=== PATIENT | male | born 1995 | race African-American/Black ===

== ENCOUNTER 2016-12-31 12:14 | Emergency (ER) ==
[2016-12-31 12:18] VITALS: BP 146/82; TEMP 98.1; BMI 27.2
[2016-12-31] MEDS ORDERED: SODIUM CHLORIDE 1,000 ML IV STA (12:30)
[2016-12-31 13:03] LABS: BASOPHILS % (AUTO) 0.5 % (0.0-3.0); EOSINOPHILS # (AUTO) 0.1 K/ul (0.0-0.7); EOSINOPHILS % (AUTO) 0.9 % (0.0-7.0); HEMATOCRIT 43.3 % (42.0-52.0); IMMATURE GRANULOCYTE % (AUTO) 0.3 % (0.0-5.0); LYMPHOCYTES # (AUTO) 1.4 K/uL (0.60-3.4); LYMPHOCYTES % (AUTO) 22.5 (10.0-50.0); MEAN CORPUSCULAR HEMOGLOBIN 29.9 pg (27.0-31.0); MEAN CORPUSCULAR HGB CONC 34.6 (31.8-35.4); MEAN CORPUSCULAR VOLUME 86.3 fl (80.0-94.0); MONOCYTES # (AUTO) 0.6 K/uL (0.4-2.0); MONOCYTES % (AUTO) 9.5 (0-10); NEUTROPHILS # (AUTO) 4.2 K/ul (2.0-6.9); NEUTROPHILS % (AUTO) 66.3; PLATELET COUNT 233 10^3/uL (140-440); RED BLOOD COUNT 5.02 10^6/ul (4.70-6.10); WHITE BLOOD COUNT 6.39 K/ul (4.2-10.2)
[2016-12-31 13:25] LABS: BILIRUBIN,URINE 1+ (NEGATIVE); KETONES,URINE Negative (NEGATIVE); LEUKOCYTE ESTERASE ,URINE Negative (NEGATIVE); NITRITE,URINE Negative (NEGATIVE); PROTEIN,URINE Trace (NEGATIVE); URINE, BLOOD Negative (NEGATIVE)
[2016-12-31 13:28] LABS: ALBUMIN 4.3 g/dL (3.4-5.0); ALBUMIN/GLOBULIN RATIO 1.1; BILIRUBIN,TOTAL 0.64 mg/dL (0.00-1.20); BUN/CREATININE RATIO 8.16; CALCIUM 9.3 mg/dL (8.2-10.2); CREATININE 0.98 mg/dL (0.60-1.10); TOTAL PROTEIN 8.2 g/dL (6.4-8.2)
[2016-12-31 13:29] LABS: ADD URINE MICROSCOPIC YES; BACTERIA,URINE TRACE (NOT PRESENT)
[2016-12-31 13:40] LABS: ERYTHROCYTE SEDIMENTATION RATE 14 mm/hr (0-15); ESR INTERNAL QC INTERNAL QC VALID
--- NOTE | 2016-12-31 14:23 | CT ---
Exam: CT of the abdomen pelvis without intravenous contrast followed by CT of the abdomen pelvis wi th intravenous contrast. Comparison: None available. Reason for exam: Lower abdominal pain. FINDINGS: No pleural effusion, or focal consolidation is seen in the partially imaged lung bases. The liver, spleen, gallbladder, pancreas, and adrenal glands are grossly unremarkable. No focal small bowel dilatation or transition point. Prominent appearing lymph nodes are seen throu ghout the abdominal mesentery. There is wall thickening and inflammatory changes in the transverse and descending colon. The rectosigmoid is unremarkable. No suspicious appearing osteoblastic or osteolytic lesions. No intra-abdominal free air or pelvic free fluid. Impression: 1. Wall thickening with mild inflammatory changes in the transverse and descending colon with promin ent mesenteric lymph nodes. Imaging findings are consistent with colitis. 2. No other acute inflammatory findings are seen. The appendix is unremarkable. Report faxed at [phone] hours on 12/31/2016.
--- NOTE | 2016-12-31 14:33 | ED.PDOC ---
General ED Provider: Dr. RIYA NEWELL-ER Chief Complaint: Abdominal Pain Stated Complaint: camille been crmping for 2 days Time Seen by Physician: 12:15 Mode of Arrival: Walk-In Information Source: Patient Exam Limitations: No limitations Nursing and Triage Documentation Reviewed and Agree: Yes GI Complaint Exam - Abdominal Pain Complaint/Exam Onset: Gradual Duration: 2 days Symptoms Are: Still present Timing: Intermittent Initial Severity: Mild Current Severity: Mild Location of Pain: Diffuse Character: Reports: Dull, Aching, Throbbing, Cramping Aggravating: Reports: None Alleviating: Reports: Spontaneous resolution Associated Signs and Symptoms: Denies: Diaphoresis, Fever, Cough, Chest pain, Dizziness, Back pain, Constipation, Blood in stool, Dysuria, Urinary frequency, Decreased urine output, Decreased appetite, Discharge, Nausea, Vomiting, Diarrhea, Decreased activity AAA Risk Factors: Reports: None Cardiac Risk Factors: Reports: None Testicular Torsion Risk Factors: Reports: None Related Surgical History: Reports: None Differential Diagnoses: Constipation, Pancreatitis, Irritable Bowel Syndrome Review of Systems - Review Of Systems Constitutional: Reports: No symptoms Eyes: Reports: No symptoms Ears, Nose, Mouth, Throat: Reports: No symptoms Respiratory: Reports: No symptoms Cardiac: Reports: No symptoms GI: Reports: Abdominal pain. Denies: Nausea, Poor appetite, Poor fluid intake, Rectal bleeding, Vomiting, Other : Reports: No symptoms Musculoskeletal: Reports: No symptoms Skin: Reports: No symptoms Neurological: Reports: No symptoms Endocrine: Reports: No symptoms Hematologic/Lymphatic: Reports: No symptoms All Other Systems: Reviewed and Negative Past Medical History - Past Medical History Previously Healthy: Yes Endocrine: Reports: Unknown Cardiovascular: Reports: Unknown Respiratory: Reports: Unknown Hematological: Reports: Unknown Gastrointestinal: Reports: Unknown Genitourinary: Reports: Unknown Neuro/Psych: Reports: Unknown Musculoskeletal: Reports: Unknown Cancer: Reports: Unknown - Surgical History General Surgical History: Reports: Unknown - Family History Family History: Reports: Unknown - Social History Smoking Status: Current every day smoker, Light tobacco smoker Hx Substance Use: No Alcohol Screening: Occasionally Lives: With family Physical Exam - Physical Exam Appearance: Well-appearing Pain Distress: Mild Eyes: CINDY, EOMI, Conjunctiva clear ENT: Ears normal, Nose normal, Oropharynx normal Neck: Supple Respiratory: Airway patent, Breath sounds clear, Breath sounds equal, Respirations nonlabored Cardiovascular: RRR GI/: Soft, Nontender, No masses, Bowel sounds normal, No Organomegaly Musculoskeletal: Normal strength, ROM intact, No edema, No calf tenderness Skin: Warm Neurological: Sensation intact, Motor intact, Reflexes intact, Cranial nerves intact, Alert, Oriented Psychiatric: Affect appropriate, Mood appropriate Interpretation - Radiology Interpretation Radiology Interpretation By: Radiologist Radiology Results: Negative Exam Interpreted: CT Scan ("colitis") Critical Care Note - Critical Care Note Total Time (mins): 0 Course - Course Hematology/Chemistry: 12/31/16 12:35 12/31/16 12:35 Orders, Labs, Meds: Lab Review 12/31/16 12:35 WBC 6.39 RBC 5.02 Hgb 15.0 Hct 43.3 MCV 86.3 MCH 29.9 MCHC 34.6 RDW Coeff of Paul 12.5 Plt Count 233 Immature Gran % (Auto) 0.3 Neut % (Auto) 66.3 Lymph % (Auto) 22.5 [place] % (Auto) 9.5 Eos % (Auto) 0.9 Baso % (Auto) 0.5 Immature Gran # (Auto) 0.0 Neut # 4.2 Lymph # 1.4 [place] # 0.6 Eos # 0.1 Baso # 0.0 ESR 14 Sodium 141 Potassium 4.0 Chloride 106 Carbon Dioxide 26 Anion Gap 13.0 BUN 8 Creatinine 0.98 Estimated GFR (MDRD) 118.00 BUN/Creatinine Ratio 8.16 Glucose 87 Calcium 9.3 Total Bilirubin 0.64 AST 30 ALT 21 Alkaline Phosphatase 83 Total Protein 8.2 Albumin 4.3 Globulin 3.9 Albumin/Globulin Ratio 1.10 Amylase 127 H Lipase 10 TSH 0.829 Urine Color Yellow Urine Clarity Clear Urine pH 6.0 Ur Specific [place] 1.025 Urine Protein Trace Urine Glucose (UA) Negative Urine Ketones Negative Urine Blood Negative Urine Nitrite Negative Urine Bilirubin 1+ Urine Urobilinogen 0.2 Ur Leukocyte Esterase Negative Urine Microscopic WBC 2-5 Ur Squamous Epith Cells 2-5 Urine Bacteria Trace Orders Category Date Time Status NPO REMINDER: IMAGING ONCE CARE 12/31/16 12:30 Completed ED IV/MEDIPORT/POWERPORT .ONCE EMERGENCY 12/31/16 12:30 Active AMYLASE Stat LAB 12/31/16 12:35 Completed CBC W/ AUTO DIFF Stat LAB 12/31/16 12:35 Completed COMPREHENSIVE METABOLIC PANEL Stat LAB 12/31/16 12:35 Completed ESR Stat LAB 12/31/16 12:35 Completed LIPASE Stat LAB 12/31/16 12:35 Completed TSH [THYROID STIMULATING HORMONE] Stat LAB 12/31/16 12:35 Completed URINALYSIS C & S IF INDICATED Stat LAB 12/31/16 12:35 Completed 0.9 % Sodium Chloride [Saline Flush] MEDS 12/31/16 12:30 Active 1 syr IVF PRN PRN Sodium Chloride 0.9% [Sodium Chloride] 1,000 ml MEDS 12/31/16 12:30 Active IV 250 mls/hr CT ABDOMEN/PELVIS W/WO CONTRAS Stat RADS 12/31/16 12:30 Completed Medications Generic Name Dose Route Start Last Admin Trade Name Freq PRN Reason Stop Dose Admin Sodium Chloride 1,000 mls @ 250 mls/hr 12/31/16 12:30 12/31/16 13:01 Sodium Chloride IV 12/31/16 16:29 250 mls/hr .Q4H STA Administration Sodium Chloride 1 syr 12/31/16 12:30 12/31/16 13:01 Saline Flush IVF 1 syr PRN PRN Administration To flush IV Vital Signs: Temp Pulse Resp BP Pulse Ox 12/31/16 12:14 98.1 F 86 18 146/82 H 98 Departure - Departure Time of Disposition: 14:33 Disposition: HOME SELF-CARE Discharge Problem: Colitis Instructions: Colitis (ED) Condition: Good Pt referred to PMD for follow-up: Yes Additional Instructions: flagyl 500mg tid x 7days--librax q 8hrs prn cramps#21--avoid dairy products for 3 days--f/u in clinic --consider gi referral for colonoscopy Allergies/Adverse Reactions: Allergies No Known Allergies Allergy (Verified 12/31/16 12:19) Home Medications: Ambulatory Orders 1 [No Reported Medications] 12/31/16 Disposition Discussed With: Patient
== END 2016-12-31 14:47 | disposition home or self-care (01) ==
LOC: ED 12:14
DX: K52.9 Noninfective gastroenteritis and colitis, unspecified (principal); F17.210 Nicotine dependence, cigarettes, uncomplicated
CPT/HCPCS: 36415; 80053; 81001; 82150; 83690; 84443; 85025; 85651; 96360; 99283

== ENCOUNTER 2017-06-18 08:55 | Emergency (ER) ==
[2017-06-18 08:58] VITALS: BP 148/91; TEMP 97.8; BMI 28.0
--- NOTE | 2017-06-18 09:21 | ED.PDOC ---
General ED Provider: Dr. KELLY QUINN JR Chief Complaint: Abdominal Pain Stated Complaint: patient states he has had this off and on for 2-3 weeks. states he has diarrhea and has some blood in it. states he has bright red blood that is in the toilet. patient states he has had this before and dx with colitis.[End]97.8 85 16 98% 148/91 7/10colitis diarrhea melena 06/18/17. : Colitis (ED). Pt referred to PMD for follow-up: Yes. flagyl 500mg tid x 7days--librax q 8hrs prn cramps#21--avoid dairy products for 3 days--f/u in clinic --consider gi referral for colonoscopy (Verified 12/31/16 12:19) Time Seen by Physician: 09:14 Mode of Arrival: Walk-In Information Source: Patient Exam Limitations: No limitations Nursing and Triage Documentation Reviewed and Agree: No Reviewed sepsis parameters & appropriate labs ordered?: No System Inflammatory Response Syndrome: Not Applicable Sepsis Protocol: For patient's 13 years and over: Temp is 96.8 and below OR 101 and greater Pulse >90 BPM Resp >20/minute Acutely Altered Mental Status Are patient's symptoms suggestive of a new infection, such as: -Pneumonia -Skin, Soft Tissue -Endocarditis -UTI -Bone, Joint Infection -Implantable Device -Acute Abdominal Infection -Wound Infection -Meningitis -Blood Stream Catheter Infection -Unknown System Inflammatory Response Syndrome: Not Applicable Review of Systems - Review Of Systems Constitutional: Reports: Weakness Eyes: Reports: No symptoms Ears, Nose, Mouth, Throat: Reports: No symptoms Respiratory: Reports: No symptoms Cardiac: Reports: No symptoms GI: Reports: Abdominal pain (periumbilical, nonfocal tenderness on exam), Diarrhea (cramping), Rectal bleeding : Reports: No symptoms Musculoskeletal: Reports: No symptoms Skin: Reports: No symptoms Neurological: Reports: Weakness Endocrine: Reports: Unexplained weight loss Hematologic/Lymphatic: Reports: No symptoms All Other Systems: Other Past Medical History - Past Medical History Previously Healthy: Yes Endocrine: Reports: Unknown Cardiovascular: Reports: Unknown Respiratory: Reports: Unknown Hematological: Reports: Unknown. Denies: Sickle Cell (trait positive) Gastrointestinal: Reports: Unknown Genitourinary: Reports: Unknown Neuro/Psych: Reports: Unknown Musculoskeletal: Reports: Unknown Cancer: Reports: Unknown - Surgical History General Surgical History: Reports: Unknown - Family History Family History: Reports: Unknown - Social History Smoking Status: Current every day smoker, Light tobacco smoker Hx Substance Use: No Alcohol Screening: Occasionally Physical Exam - Physical Exam Appearance: Well-appearing, Thin Eyes: CINDY ENT: Ears normal, Nose normal, Oropharynx normal Neck: Supple Respiratory: Airway patent, Breath sounds clear, Breath sounds equal, Respirations nonlabored Cardiovascular: RRR, Pulses normal, No rub, No murmur GI/: No masses (increased abdominal tone diffuse tenderness pain is periumbilical), Bowel sounds normal, Tender (nonfocal) Musculoskeletal: Normal strength, ROM intact, No edema, No calf tenderness Skin: Warm, Dry, Normal color Neurological: Sensation intact, Motor intact, Reflexes intact, Cranial nerves intact, Alert, Oriented Psychiatric: Affect appropriate, Mood appropriate Critical Care Note - Critical Care Note Total Time (mins): 0 Course - Course Hematology/Chemistry: 06/18/17 09:42 06/18/17 09:42 Orders, Labs, Meds: Lab Review 06/18/17 06/18/17 06/18/17 09:42 09:42 09:42 WBC 8.48 RBC 4.55 L Hgb 13.7 L Hct 40.1 L MCV 88.1 MCH 30.1 MCHC 34.2 RDW Coeff of Paul 12.8 Plt Count 183 Immature Gran % (Auto) 0.4 Neut % (Auto) 69.6 Lymph % (Auto) 23.0 [place] % (Auto) 6.4 Eos % (Auto) 0.4 Baso % (Auto) 0.2 Immature Gran # (Auto) 0.0 Neut # 5.9 Lymph # 2.0 [place] # 0.5 Eos # 0.0 Baso # 0.0 Sodium 138 Potassium 3.9 Chloride 104 Carbon Dioxide 26 Anion Gap 11.9 BUN 10 Creatinine 0.83 Estimated GFR (MDRD) 142.00 BUN/Creatinine Ratio 12.04 Glucose 89 Calcium 9.2 Total Bilirubin 0.6 AST 39 H ALT 53 Alkaline Phosphatase 76 Total Protein 7.8 Albumin 3.9 Globulin 3.9 Albumin/Globulin Ratio 1.00 Amylase 100 Lipase 8 Stl Occult Blood (IFOB) Stool Occult Blood #2 Stool Occult Blood #3 H. pylori IgG Antibody Positive 06/18/17 10:00 WBC RBC Hgb Hct MCV MCH MCHC RDW Coeff of Paul Plt Count Immature Gran % (Auto) Neut % (Auto) Lymph % (Auto) [place] % (Auto) Eos % (Auto) Baso % (Auto) Immature Gran # (Auto) Neut # Lymph # [place] # Eos # Baso # Sodium Potassium Chloride Carbon Dioxide Anion Gap BUN Creatinine Estimated GFR (MDRD) BUN/Creatinine Ratio Glucose Calcium Total Bilirubin AST ALT Alkaline Phosphatase Total Protein Albumin Globulin Albumin/Globulin Ratio Amylase Lipase Stl Occult Blood (IFOB) Negative Stool Occult Blood #2 No specimen received Stool Occult Blood #3 No specimen received H. pylori IgG Antibody Orders Category Date Time Status AMYLASE Stat LAB 06/18/17 09:42 Completed CBC W/ AUTO DIFF Stat LAB 06/18/17 09:42 Completed COMPREHENSIVE METABOLIC PANEL Stat LAB 06/18/17 09:42 Completed H. PYLORI SCREEN Stat LAB 06/18/17 09:42 Completed LIPASE Stat LAB 06/18/17 09:42 Completed OCCULT BLOOD, STOOL Stat LAB 06/18/17 10:00 Completed STOOL CULTURE Stat LAB 06/18/17 10:00 Received URINALYSIS C & S IF INDICATED Stat LAB 06/18/17 09:34 Uncollected Vital Signs: Temp Pulse Resp BP Pulse Ox 06/18/17 08:56 97.8 F 85 16 148/91 H 98 Departure - Departure Time of Disposition: 10:34 Disposition: HOME SELF-CARE Discharge Problem: Gastrointestinal bleeding, lower Instructions: Gastrointestinal Bleeding (ED) Condition: Good Pt referred to PMD for follow-up: No ([facility]) Additional Instructions: need to follow up with gastroenterology stool culture should be finished in 4 days or less recommend take prevpac for helicobacter(germ can cause ulcers) follow up with PMD for referral may follow with [facility] recommend follow up within a week discuss bleeding and weight loss you have mild anemia this indicates blood loss has been noticable sugar is normal(probably no diabetes) Prescriptions: Lansoprazole/Amoxiciln/Clarith [Prevpac Patient Pack] 1 each PO BID #1 combo..pkg Allergies/Adverse Reactions: Allergies No Known Allergies Allergy (Verified 06/18/17 08:58) Home Medications: Ambulatory Orders Lansoprazole/Amoxiciln/Clarith [Prevpac Patient Pack] 1 each PO BID #1 combo..pkg 06/18/17 Disposition Discussed With: Patient
[2017-06-18 09:44] LABS: BASOPHILS % (AUTO) 0.2 % (0.0-3.0); EOSINOPHILS % (AUTO) 0.4 % (0.0-7.0); HEMATOCRIT 40.1 % (42.0-52.0); HEMOGLOBIN 13.7 g/dl (14.0-18.0); IMMATURE GRANULOCYTE % (AUTO) 0.4 % (0.0-5.0); MEAN CORPUSCULAR HEMOGLOBIN 30.1 pg (27.0-31.0); MEAN CORPUSCULAR HGB CONC 34.2 (31.8-35.4); MEAN CORPUSCULAR VOLUME 88.1 fl (80.0-94.0); MONOCYTES # (AUTO) 0.5 K/uL (0.4-2.0); MONOCYTES % (AUTO) 6.4 (0-10); NEUTROPHILS # (AUTO) 5.9 K/ul (2.0-6.9); NEUTROPHILS % (AUTO) 69.6; PLATELET COUNT 183 10^3/uL (140-440); RED BLOOD COUNT 4.55 10^6/ul (4.70-6.10); WHITE BLOOD COUNT 8.48 K/ul (4.2-10.2)
[2017-06-18 09:57] LABS: H. PYLORI ANTIBODY POSITIVE (NEGATIVE); H.PYLORI INTERNAL QC INTERNAL QC VALID
[2017-06-18 10:08] LABS: ALBUMIN 3.9 g/dL (3.4-5.0); ANION GAP 11.9; BILIRUBIN,TOTAL 0.6 mg/dL (0.00-1.20); BUN/CREATININE RATIO 12.04; CALCIUM 9.2 mg/dL (8.2-10.2); CREATININE 0.83 mg/dL (0.60-1.10); POTASSIUM 3.9 mmol/L (3.5-5.1); TOTAL PROTEIN 7.8 g/dL (6.4-8.2)
[2017-06-18 10:24] LABS: OCCULT BLOOD INTERNAL QC 1 INTERNAL QC VALID; OCCULT BLOOD INTERNAL QC 2 INTERNAL QC VALID; OCCULT BLOOD SAMPLE 1 NEGATIVE (NEGATIVE); OCCULT BLOOD SAMPLE 2 NO SPECIMEN RECEIVED (NEGATIVE)
[2017-06-18 10:25] LABS: OCCULT BLOOD INTERNAL QC 3 INTERNAL QC VALID; OCCULT BLOOD SAMPLE 3 NO SPECIMEN RECEIVED (NEGATIVE)
== END 2017-06-18 10:52 | disposition home or self-care (01) ==
LOC: ED 08:55
DX: K92.1 Melena (principal); R10.9 Unspecified abdominal pain; R63.4 Abnormal weight loss; A04.8 Other specified bacterial intestinal infections; D50.0 Iron deficiency anemia secondary to blood loss (chronic); F17.210 Nicotine dependence, cigarettes, uncomplicated
CPT/HCPCS: 36415; 80053; 82150; 82272; 83690; 85025; 86677; 87015; 87045; 87899; 99283

== ENCOUNTER 2018-02-27 15:17 | Outpatient (CLI) | END 2018-02-27 15:18 | disposition home or self-care (01) | LOC: RHC-LAB 15:17 | PROVIDERS: ATTEND Nurse Practitioner Family | DX: Z00.00 Encounter for general adult medical examination without abnormal findings (principal) | CPT/HCPCS: 36415; 80053; 80061; 84443; 85025 ==

== ENCOUNTER 2018-03-16 20:32 | Emergency (ER) ==
[2018-03-16 20:39] VITALS: BMI 33.3
--- NOTE | 2018-03-16 21:23 | CT ---
EXAM: CT scan brain without contrast HISTORY: Altered mental status COMPARISON: None. FINDINGS: Contiguous axial images obtained from the skull base to the convexities without contrast u tilizing 5-mm collimation. Sagittal and coronal reconstructions were imaged and reviewed.. The vent ricles and CSF spaces are within normal there are no acute intracranial findings. The visualized par anasal sinuses and mastoid air cells are clear. The calvarium is intact. IMPRESSION: No acute intracranial findings
--- NOTE | 2018-03-17 00:46 | ED.PDOC ---
General <DENAE BEE - Last Filed: 03/17/18 23:38> Stated Complaint: sent her--not answering questions--hx of paranoid schiz Time Seen by Physician: 20:40 Mode of Arrival: Walk-In Information Source: Patient Exam Limitations: No limitations Nursing and Triage Documentation Reviewed and Agree: Yes Does patient meet sepsis criteria?: No System Inflammatory Response Syndrome: Not Applicable <RIYA CA - Last Filed: 03/18/18 19:00> ED Provider: Dr. RIYA CA Chief Complaint: Altered Mental Status Sepsis Protocol: For patient's 13 years and over: Temp is 96.8 and below OR 101 and greater Pulse >90 BPM Resp >20/minute Acutely Altered Mental Status Are patient's symptoms suggestive of a new infection, such as: -Pneumonia -Skin, Soft Tissue -Endocarditis -UTI -Bone, Joint Infection -Implantable Device -Acute Abdominal Infection -Wound Infection -Meningitis -Blood Stream Catheter Infection -Unknown Psychological Complaint Exam - Psychiatric Complaint/Exam Patient Complains Of: Present: Other Onset/Duration: today Symptoms Are: Still present Initial Severity: Mild Current Severity: Moderate Character: Present: Depressed, Fearful, Anxious Aggravating: Reports: Recent stress Associated Signs And Symptoms: Denies: Hostile, Confused, Hallucinating, Paranoid behavior, Sleep disturbance, Appetite change Completed Suicide Risk Factors: Male Patient Accompanied By: Family Patient In Custody Of Police: No Social Withdrawal Present: Yes Social Isolation Present: Yes Prior Suicide Attempt: No Related Surgical History: Reports: None Patient Uncooperative For Exam: No Mood: Present: Depressed, Guarded, Paranoid Appearance: Present: Clean Thought Process: Present: Logical Insight: Present: Poor Danger To Others: No Patient Medically Stable For: Psych evaluation, Referral, Transfer Differential Diagnoses: Acute Psychosis, Schizophrenia <RIYA CA - Last Filed: 03/18/18 19:00> Review of Systems - Review Of Systems Constitutional: Reports: No symptoms Eyes: Reports: No symptoms Ears, Nose, Mouth, Throat: Reports: No symptoms Respiratory: Reports: No symptoms Cardiac: Reports: No symptoms GI: Reports: No symptoms : Reports: No symptoms Musculoskeletal: Reports: No symptoms Skin: Reports: No symptoms Neurological: Reports: Emotional problems, Cognitive dysfunction Endocrine: Reports: No symptoms Hematologic/Lymphatic: Reports: No symptoms All Other Systems: Reviewed and Negative <RIYA CA - Last Filed: 03/18/18 19:00> Past Medical History - Past Medical History Previously Healthy: Yes Endocrine: Reports: Unknown Cardiovascular: Reports: Unknown Respiratory: Reports: Unknown Hematological: Reports: Unknown. Denies: Sickle Cell (trait positive) Gastrointestinal: Reports: Unknown Genitourinary: Reports: Unknown Neuro/Psych: Reports: Unknown Musculoskeletal: Reports: Unknown Cancer: Reports: Unknown - Surgical History General Surgical History: Reports: Unknown - Family History Family History: Reports: Unknown - Social History Smoking Status: Current every day smoker, Light tobacco smoker Hx Substance Use: No Alcohol Screening: Occasionally - Immunizations Tetanus Shot up to Date: No <RIYA CA - Last Filed: 03/18/18 19:00> Physical Exam - Physical Exam Appearance: Well-appearing, No pain distress, Well-nourished Eyes: CINDY, EOMI, Conjunctiva clear ENT: Ears normal, Nose normal, Oropharynx normal Neck: Supple Respiratory: Airway patent, Breath sounds clear, Breath sounds equal, Respirations nonlabored Cardiovascular: RRR GI/: Soft, Nontender, No masses, Bowel sounds normal, No Organomegaly Musculoskeletal: Normal strength, ROM intact, No edema, No calf tenderness Skin: Warm, Dry, Normal color Neurological: Sensation intact Psychiatric: Affect appropriate, Mood appropriate <RIYA CA - Last Filed: 03/18/18 19:00> Interpretation - Radiology Interpretation Radiology Interpretation By: Radiologist Radiology Results: Negative Exam Interpreted: CT Scan <RIYA CA - Last Filed: 03/18/18 19:00> Re-Evaluation - Re-Evaluation Time of Re-Evaluation: 23:39 (was given a shower by family and imaging technician) Status: Improved (more cooperative but very paranoid. ) Vital Signs Stable: Yes (152/96) <DENAE BEE - Last Filed: 03/17/18 23:38> Physician Notification - Case Discussed Physician Notified: dr heredia Time of Notification: 06:25 <RIYA CA - Last Filed: 03/18/18 19:00> Critical Care Note - Critical Care Note Total Time (mins): 0 <RIYA CA - Last Filed: 03/18/18 19:00> Course - Course Hematology/Chemistry: 03/17/18 21:59 03/17/18 21:59 <NIKUNJDENAE GILMORE - Last Filed: 03/17/18 23:38> - Course Hematology/Chemistry: 03/17/18 21:59 03/17/18 21:59 <RIYA CA - Last Filed: 03/18/18 19:00> - Course Orders, Labs, Meds: Lab Review 03/16/18 03/16/18 03/16/18 21:12 21:12 21:12 WBC 9.75 RBC 5.26 Hgb 15.9 Hct 45.7 MCV 86.9 MCH 30.2 MCHC 34.8 RDW Coeff of Paul 12.5 Plt Count 233 Immature Gran % (Auto) 0.2 Neut % (Auto) 62.0 Lymph % (Auto) 24.3 [place] % (Auto) 13.0 H Eos % (Auto) 0.2 Baso % (Auto) 0.3 Immature Gran # (Auto) 0.0 Neut # (Auto) 6.0 Lymph # (Auto) 2.4 [place] # (Auto) 1.3 Eos # (Auto) 0.0 Baso # (Auto) 0.0 Sodium 133.9 L Potassium 4.34 Chloride 99.2 Carbon Dioxide 25.1 Anion Gap 13.94 BUN 22.3 H Creatinine 1.00 Estimated GFR (MDRD) 114.00 BUN/Creatinine Ratio 22.30 Glucose 129.5 H Calcium 9.46 Total Bilirubin 1.11 AST 120.9 H ALT 58.1 H Alkaline Phosphatase 75.2 Total Protein 9.66 H Albumin 4.88 Globulin 4.78 Albumin/Globulin Ratio 1.02 TSH 2.250 Urine Color Urine Clarity Urine pH Ur Specific [place]utter Urine Protein Urine Glucose (UA) Urine Ketones Urine Blood Urine Nitrite Urine Bilirubin Urine Urobilinogen Ur Leukocyte Esterase Urine Microscopic WBC Ur Squamous Epith Cells Amorphous Sediment Urine Mucus Salicylate Level mg/dL < 1.00 Urine Opiates Screen Ur Oxycodone Screen Urine Methadone Screen Ur Propoxyphene Screen Acetaminophen < 10.0 L Ur Barbiturates Screen U Tricyclic Antidepress Ur Phencyclidine Scrn Ur Amphetamine Screen U Methamphetamines Scrn U Benzodiazepines Scrn Urine Cocaine Screen U Cannabinoids Screen Plasma/Serum Alcohol < 10.0 HIV 1&2 Ag/Ab, 4th Gen Non reactive 03/17/18 03/17/18 03/17/18 02:10 02:10 21:59 WBC 11.40 H RBC 5.25 Hgb 15.8 Hct 46.2 MCV 88.0 MCH 30.1 MCHC 34.2 RDW Coeff of Paul 12.3 Plt Count 238 Immature Gran % (Auto) 0.4 Neut % (Auto) 63.6 Lymph % (Auto) 21.0 [place] % (Auto) 14.3 H Eos % (Auto) 0.3 Baso % (Auto) 0.4 Immature Gran # (Auto) 0.0 Neut # (Auto) 7.3 H Lymph # (Auto) 2.4 [place] # (Auto) 1.6 Eos # (Auto) 0.0 Baso # (Auto) 0.0 Sodium Potassium Chloride Carbon Dioxide Anion Gap BUN Creatinine Estimated GFR (MDRD) BUN/Creatinine Ratio Glucose Calcium Total Bilirubin AST ALT Alkaline Phosphatase Total Protein Albumin Globulin Albumin/Globulin Ratio TSH Urine Color Yellow Urine Clarity Clear Urine pH 6.0 Ur Specific [place] >=1.030 Urine Protein 2+ Urine Glucose (UA) Negative Urine Ketones 3+ Urine Blood Trace-intact Urine Nitrite Negative Urine Bilirubin 1+ Urine Urobilinogen 0.2 Ur Leukocyte Esterase Trace Urine Microscopic WBC 5-10 Ur Squamous Epith Cells 0-2 Amorphous Sediment 1+ Urine Mucus Trace Salicylate Level mg/dL Urine Opiates Screen Negative Ur Oxycodone Screen Negative Urine Methadone Screen Negative Ur Propoxyphene Screen Negative Acetaminophen Ur Barbiturates Screen Negative U Tricyclic Antidepress Negative Ur Phencyclidine Scrn Negative Ur Amphetamine Screen Negative U Methamphetamines Scrn Negative U Benzodiazepines Scrn Negative Urine Cocaine Screen Negative U Cannabinoids Screen Positive Plasma/Serum Alcohol HIV 1&2 Ag/Ab, 4th Gen 03/17/18 03/18/18 21:59 01:20 WBC RBC Hgb Hct MCV MCH MCHC RDW Coeff of Paul Plt Count Immature Gran % (Auto) Neut % (Auto) Lymph % (Auto) [place] % (Auto) Eos % (Auto) Baso % (Auto) Immature Gran # (Auto) Neut # (Auto) Lymph # (Auto) [place] # (Auto) Eos # (Auto) Baso # (Auto) Sodium 135.0 L Potassium 4.30 Chloride 98.0 Carbon Dioxide 27.0 Anion Gap 14.30 BUN 24.0 H Creatinine 1.20 H Estimated GFR (MDRD) 93.00 BUN/Creatinine Ratio 20.00 Glucose 130.0 H Calcium 9.50 Total Bilirubin 0.90 AST 112.0 H ALT 52.0 H Alkaline Phosphatase 56.0 Total Protein 9.20 H Albumin 4.60 Globulin 4.60 Albumin/Globulin Ratio 1.00 TSH Urine Color Urine Clarity Urine pH Ur Specific [place] Urine Protein Urine Glucose (UA) Urine Ketones Urine Blood Urine Nitrite Urine Bilirubin Urine Urobilinogen Ur Leukocyte Esterase Urine Microscopic WBC Ur Squamous Epith Cells Amorphous Sediment Urine Mucus Salicylate Level mg/dL Urine Opiates Screen Negative Ur Oxycodone Screen Negative Urine Methadone Screen Negative Ur Propoxyphene Screen Negative Acetaminophen Ur Barbiturates Screen Negative U Tricyclic Antidepress Negative Ur Phencyclidine Scrn Negative Ur Amphetamine Screen Negative U Methamphetamines Scrn Negative U Benzodiazepines Scrn Negative Urine Cocaine Screen Negative U Cannabinoids Screen Positive Plasma/Serum Alcohol HIV 1&2 Ag/Ab, 4th Gen Orders Category Date Time Status EKG-(ED ONLY) Stat CARDIO 03/17/18 21:52 Completed Mental Health Consult [ED MENTAL HEALTH CONSULT] .ONCE EMERGENCY 03/16/18 20: 46 Active ACETAMINOPHEN Stat LAB 03/16/18 21:12 Completed ASPIRIN LEVEL [SALICYLATE] Stat LAB 03/16/18 21:12 Completed BLOOD ALCOHOL Stat LAB 03/16/18 21:12 Completed CBC W/ AUTO DIFF Stat LAB 03/16/18 21:12 Completed CBC W/ AUTO DIFF Stat LAB 03/17/18 21:59 Completed COMPREHENSIVE METABOLIC PANEL Stat LAB 03/16/18 21:12 Completed COMPREHENSIVE METABOLIC PANEL Stat LAB 03/17/18 21:59 Completed DRUG SCREEN, URINE, RAPID Stat LAB 03/17/18 21:52 Completed HEPATITIS PANEL, ACUTE Stat LAB 03/17/18 17:43 Received HIV 4TH GENERATION Stat LAB 03/16/18 21:12 Completed TSH [THYROID STIMULATING HORMONE] Stat LAB 03/16/18 21:12 Completed URINALYSIS C & S IF INDICATED Stat LAB 03/17/18 02:10 Completed URINE CULTURE Stat LAB 03/17/18 02:24 Results URINE DRUG SCREEN (RAPID FOR ED) [DRUG SCREEN, URINE, LAB 03/17/18 02:10 Completed RAPID] Stat Clonidine HCl [Catapres] MEDS 03/17/18 21:59 Discontinued 0.1 mg PO ONCE STA Lorazepam [Ativan] MEDS 03/18/18 01:58 Discontinued 1 mg PO ONCE STA Lorazepam [Ativan] MEDS 03/18/18 08:17 Discontinued 2 mg PO ONCE STA Ziprasidone Mesylate [Geodon] MEDS 03/17/18 23:58 Discontinued 10 mg IM ONCE STA CT HEAD W/O CONTRAST Stat RADS 03/16/18 20:46 Completed Medications Discontinued Medications Generic Name Dose Route Start Last Admin Trade Name Jayna PRN Reason Stop Dose Admin Clonidine 0.1 mg 03/17/18 21:59 03/17/18 22:14 Catapres PO 03/17/18 22:00 0.1 mg ONCE STA Administration Lorazepam 1 mg 03/18/18 01:58 03/18/18 02:36 Ativan PO 03/18/18 01:59 1 mg ONCE STA Administration Lorazepam 2 mg 03/18/18 08:17 03/18/18 08:23 Ativan PO 03/18/18 08:18 2 mg ONCE STA Administration Ziprasidone 10 mg 03/17/18 23:58 03/18/18 00:24 Geodon IM 03/17/18 23:59 10 mg ONCE STA Administration Vital Signs: Temp Pulse Resp BP Pulse Ox 03/18/18 08:30 97.5 F L 102 H 20 146/98 H 97 03/18/18 03:54 119/76 03/18/18 01:00 98.7 F 110 H 24 128/105 H 99 03/18/18 00:17 130/89 03/17/18 21:55 98.3 F 105 H 142/104 H 100 03/17/18 05:56 98.8 F 102 H 20 152/94 H 100 03/16/18 20:33 98.7 F 114 H 16 147/83 H 98 Departure <DENAE BEE - Last Filed: 03/17/18 23:38> - Departure Time of Disposition: 19:00 Pt referred to PMD for follow-up: No IPMP verified?: No Transfer Form Completed: Yes Disposition Discussed With: Family <RIYA CA - Last Filed: 03/18/18 19:00> - Departure Disposition: TSF TO PSYCH HOSP/UNIT Discharge Problem: Paranoid schizophrenia Condition: Good Allergies/Adverse Reactions: Allergies No Known Allergies Allergy (Verified 03/16/18 20:40) PATIENT'S MOTHER STATES THAT HE HAD A REACTION TO A PSYCHIATRIC MEDICATION THREE YEARS AGO, BUT SHE IS NOT ABLE TO RECALL WHAT MEDICATION. SHE STATES THAT PATIENT WAS FOAMING AT THE MOUTH AND "GAGGING"
[2018-03-17] MEDS ORDERED: CATAPRES PO STA (21:59)
[2018-03-17] MEDS ORDERED: GEODON IM STA (23:58)
[2018-03-18] MEDS ORDERED: ATIVAN PO STA ×2 (01:58→08:17)
[2018-03-18 09:33] VITALS: BP 146/98; TEMP 97.5
== END 2018-03-18 09:15 ==
LOC: ED 20:32
DX: F20.0 Paranoid schizophrenia (principal); F17.210 Nicotine dependence, cigarettes, uncomplicated
CPT/HCPCS: 36415; 80053; 80074; 80306; 80307; 81001; 84443; 85025; 87086; 87389; 96372; 99284

== ENCOUNTER 2018-03-18 09:14 | Outpatient (CLI) | END 2018-03-18 09:15 | disposition home or self-care (01) | LOC: AMBL 09:14 | PROVIDERS: ATTEND Internal Medicine | DX: R41.0 Disorientation, unspecified (principal); F20.0 Paranoid schizophrenia ==

== ENCOUNTER 2018-10-16 14:38 | Emergency (ER) ==
[2018-10-16 14:47] VITALS: TEMP 98.4; BMI 33.1
[2018-10-16] MEDS ORDERED: ZESTRIL PO STA (15:15)
[2018-10-16] MEDS ORDERED: VALIUM PO STA (15:16)
--- NOTE | 2018-10-16 15:35 | DI ---
EXAM: CHEST FRONTAL AND LATERAL VIEWS HISTORY: Cough. COMPARISON: None FINDINGS: Heart size and mediastinal contour within normal limits. No acute infiltrates. Deya l vascularity with no pleural fluid or pneumothorax. The bony thorax has no acute finding. IMPRESSION: No acute process.
--- NOTE | 2018-10-16 16:08 | CT ---
EXAM: CT Head HISTORY: Headache COMPARISON: 03/16/2018 TECHNIQUE: CT head performed without contrast FINDINGS: There is no mass effect, midline shift, or intracranial hemmorhage. Flores white differenti ation is preserved. There is no extra-axial collection. The ventricles, sulci, and basal cisterns a re patent and symmetric. There is no depressed calvarial fracture. The mastoid air cells are clear. The visualized paranasal sinuses are clear. IMPRESSION: No acute intracranial abnormality.
[2018-10-16 16:30] VITALS: BP 145/90
--- NOTE | 2018-10-16 16:38 | ED.PDOC ---
General ED Provider: Dr. NUPUR CORDOVA Chief Complaint: Headache Stated Complaint: 23 years old male arrives very emotional stating that he has not taken his blood pressure meds for sometime for months he had court date yesterday which made him upset regarding his legal issues. He has been living from house to house. HE DENIED SUICIDAL OR HOMOCIDAL IDEATION , GESTURE. Time Seen by Physician: 14:40 Mode of Arrival: Walk-In Information Source: Patient Exam Limitations: No limitations Nursing and Triage Documentation Reviewed and Agree: Yes Does patient meet sepsis criteria?: No If yes, has appropriate treatment been initiated?: No System Inflammatory Response Syndrome: Not Applicable Sepsis Protocol: For patient's 13 years and over: Temp is 96.8 and below OR 101 and greater Pulse >90 BPM Resp >20/minute Acutely Altered Mental Status Are patient's symptoms suggestive of a new infection, such as: -Pneumonia -Skin, Soft Tissue -Endocarditis -UTI -Bone, Joint Infection -Implantable Device -Acute Abdominal Infection -Wound Infection -Meningitis -Blood Stream Catheter Infection -Unknown Psychological Complaint Exam - Psychiatric Complaint/Exam Patient Complains Of: Present: Depression, Other (ANXIETY) Onset/Duration: TODAY HE DENIED ANY SUICIDAL IDEATION Symptoms Are: Resolved Timing: Intermittent Initial Severity: Moderate Current Severity: Moderate Character: Present: Fearful, Anxious, Frustrated Aggravating: Reports: Recent stress (COURT , OF HIS CHILD YESTERDAY) Associated Signs And Symptoms: Reports: Sleep disturbance. Denies: Hostile, Confused, Hallucinating, Paranoid behavior, Appetite change Related History: Reports: Recent stressors. Denies: Suicidal thoughts, Suicidal plan, Suicidal gestures, Homicidal thoughts Completed Suicide Risk Factors: None Patient Accompanied By: Family (SISTER ) Patient In Custody Of Police: No Social Withdrawal Present: No Social Isolation Present: No Prior Suicide Attempt: No Injury From Prior Suicide Attempt: No Related Surgical History: Reports: None Patient Uncooperative For Exam: No Mood: Present: Anxious Thought Process: Present: Logical Insight: Present: Good, Limited Memory: Intact Judgement: Normal Danger To Others: No Differential Diagnoses: Anxiety Review of Systems - Review Of Systems Constitutional: Reports: No symptoms Eyes: Reports: No symptoms Ears, Nose, Mouth, Throat: Reports: No symptoms Respiratory: Reports: No symptoms Cardiac: Reports: No symptoms GI: Reports: No symptoms : Reports: No symptoms Musculoskeletal: Reports: No symptoms Skin: Reports: No symptoms Neurological: Reports: Emotional problems Endocrine: Reports: No symptoms Hematologic/Lymphatic: Reports: No symptoms All Other Systems: Reviewed and Negative Past Medical History - Past Medical History Previously Healthy: Yes Endocrine: Reports: Unknown Cardiovascular: Reports: Unknown Respiratory: Reports: Unknown Hematological: Reports: Unknown. Denies: Sickle Cell (trait positive) Gastrointestinal: Reports: Unknown Genitourinary: Reports: Unknown Neuro/Psych: Reports: Unknown Musculoskeletal: Reports: Unknown Cancer: Reports: Unknown - Surgical History General Surgical History: Reports: Unknown - Family History Family History: Reports: Unknown - Social History Smoking Status: Current every day smoker, Light tobacco smoker Hx Substance Use: No Alcohol Screening: Occasionally Physical Exam - Physical Exam Appearance: Well-appearing, No pain distress, Well-nourished Eyes: CINDY, EOMI, Conjunctiva clear ENT: Ears normal, Nose normal, Oropharynx normal Respiratory: Airway patent, Breath sounds clear, Breath sounds equal, Respirations nonlabored Cardiovascular: RRR, Pulses normal, No rub, No murmur GI/: Soft, Nontender, No masses, Bowel sounds normal, No Organomegaly Musculoskeletal: Normal strength, ROM intact, No edema, No calf tenderness Skin: Warm, Dry, Normal color Neurological: Sensation intact, Motor intact, Reflexes intact, Cranial nerves intact, Alert, Oriented Psychiatric: Affect appropriate, Mood appropriate Interpretation - Radiology Interpretation Radiology Interpretation By: Radiologist Radiology Results: No acute changes Exam Interpreted: CXR, CT Scan (BRAIN) Critical Care Note - Critical Care Note Total Time (mins): 0 Course - Course Hematology/Chemistry: 10/16/18 15:35 10/16/18 15:35 Orders, Labs, Meds: Lab Review 10/16/18 10/16/18 10/16/18 15:35 15:35 16:15 WBC 9.72 RBC 5.30 Hgb 15.9 Hct 46.3 MCV 87.4 MCH 30.0 MCHC 34.3 RDW Coeff of Paul 12.7 Plt Count 253 Immature Gran % (Auto) 0.2 Neut % (Auto) 66.2 Lymph % (Auto) 24.7 [place] % (Auto) 8.3 Eos % (Auto) 0.4 Baso % (Auto) 0.2 Immature Gran # (Auto) 0.0 Neut # (Auto) 6.4 Lymph # (Auto) 2.4 [place] # (Auto) 0.8 Eos # (Auto) 0.0 Baso # (Auto) 0.0 Sodium 137.2 Potassium 4.30 Chloride 99.2 Carbon Dioxide 29.1 Anion Gap 13.20 BUN 9.1 Creatinine 1.00 Estimated GFR (MDRD) 113.00 BUN/Creatinine Ratio 9.10 Glucose 91.8 Calcium 9.44 Total Bilirubin 0.85 AST 32.5 ALT 21.5 Alkaline Phosphatase 89.8 Total Creatine Kinase 352.2 H CK-MB (CK-2) 2.070 CK-MB (CK-2) % 0.5800 Troponin I < 0.012 Total Protein 8.69 H Albumin 5.08 H Globulin 3.61 Albumin/Globulin Ratio 1.40 Urine Color Yellow Urine Clarity Clear Urine pH 6.0 Ur Specific [place] 1.010 Urine Protein Negative Urine Glucose (UA) Negative Urine Ketones 2+ Urine Blood Negative Urine Nitrite Negative Urine Bilirubin Negative Urine Urobilinogen 0.2 Ur Leukocyte Esterase Negative Orders Category Date Time Status EKG-(ED ONLY) Stat CARDIO 10/16/18 16:34 Ordered CBC W/ AUTO DIFF Stat LAB 10/16/18 15:12 Ordered COMPREHENSIVE METABOLIC PANEL Stat LAB 10/16/18 15:12 Ordered CREATINE KINASE Stat LAB 10/16/18 15:12 Ordered TROPONIN I Stat LAB 10/16/18 15:12 Ordered URINALYSIS C & S IF INDICATED Stat LAB 10/16/18 15:12 Uncollected URINE DRUG SCREEN (RAPID FOR ED) [DRUG SCREEN, URINE, LAB 10/16/18 15:12 Uncollected RAPID] Stat Diazepam [Valium] MEDS 10/16/18 15:16 Stat 5 mg PO ONCE STA Lisinopril [Zestril] MEDS 10/16/18 15:15 Stat 20 mg PO ONCE STA CHEST, 2 VIEWS PA & LAT Stat RADS 10/16/18 15:[address] HEAD W/O CONTRAST Stat RADS 10/16/18 15:13 Ordered Medications Discontinued Medications Generic Name Dose Route Start Last Admin Trade Name Freq PRN Reason Stop Dose Admin Diazepam 5 mg 10/16/18 15:16 10/16/18 15:34 Valium PO 10/16/18 15:17 5 mg ONCE STA Administration Lisinopril 20 mg 10/16/18 15:15 10/16/18 15:34 Zestril PO 10/16/18 15:16 20 mg ONCE STA Administration Vital Signs: Temp Pulse Resp BP Pulse Ox 10/16/18 16:29 78 16 145/90 H 100 10/16/18 14:39 98.4 F 97 H 20 147/90 H 98 Departure - Departure Time of Disposition: 17:00 (NURSE WAS PRESENT DURING MY ENTIRE ENCOUNTER WITH THE PT) Disposition: HOME SELF-CARE Discharge Problem: Headache, Uncontrolled hypertension, Anxiety, Depression (emotion) Instructions: Depression (ED), Anxiety (ED), Hypertension (ED) Condition: Good Pt referred to PMD for follow-up: Yes IPMP verified?: No Additional Instructions: Please call your Family Physician as soon as possible to schedule a follow-up appointment. Allergies/Adverse Reactions: Allergies No Known Allergies Allergy (Verified 10/16/18 14:46) PATIENT'S MOTHER STATES THAT HE HAD A REACTION TO A PSYCHIATRIC MEDICATION THREE YEARS AGO, BUT SHE IS NOT ABLE TO RECALL WHAT MEDICATION. SHE STATES THAT PATIENT WAS FOAMING AT THE MOUTH AND "GAGGING" Home Medications: Ambulatory Orders 1 [No Reported Medications] 10/16/18 Disposition Discussed With: Patient, Family Discharge Problem: Depression (emotion) Qualifiers: Depression Type: unspecified Qualified Code(s): F32.9 - Major depressive disorder, single episode, unspecified
== END 2018-10-16 17:00 | disposition home or self-care (01) ==
LOC: ED 14:38
DX: R51 Headache (principal); F41.9 Anxiety disorder, unspecified; F32.9 Major depressive disorder, single episode, unspecified; I10 Essential (primary) hypertension; Z91.14 Patient's other noncompliance with medication regimen; F17.210 Nicotine dependence, cigarettes, uncomplicated
CPT/HCPCS: 36415; 80053; 80306; 81001; 82550; 82553; 84484; 85025; 93005; 93010; 99283

== ENCOUNTER 2018-12-06 12:25 | Emergency (ER) ==
[2018-12-06] MEDS ORDERED: TETRACAINE 0.5% OPTH SOL OP STA (12:37)
[2018-12-06 12:38] VITALS: BP 136/76; TEMP 98.3; BMI 31.4
[2018-12-06] MEDS: EYE-STREAM OP STA (12:48)
[2018-12-06] MEDS: TETRACAINE 0.5% UNIT-DOSE OP STA (12:49)
[2018-12-06] MEDS: FUL-GLO OP STA (12:49)
[2018-12-06] MEDS: TETRACAINE 0.5% UNIT-DOSE OP ONE (12:50)
--- NOTE | 2018-12-06 12:53 | ED.PDOC ---
General ED Provider: Dr. RYIA NEWELL-ER Chief Complaint: Eye Problem Stated Complaint: i got an larry flicked into my eye and now its red and paInful Time Seen by Physician: 12:51 Mode of Arrival: Walk-In Information Source: Patient Exam Limitations: No limitations Nursing and Triage Documentation Reviewed and Agree: Yes Does patient meet sepsis criteria?: No System Inflammatory Response Syndrome: Not Applicable Sepsis Protocol: For patient's 13 years and over: Temp is 96.8 and below OR 101 and greater Pulse >90 BPM Resp >20/minute Acutely Altered Mental Status Are patient's symptoms suggestive of a new infection, such as: -Pneumonia -Skin, Soft Tissue -Endocarditis -UTI -Bone, Joint Infection -Implantable Device -Acute Abdominal Infection -Wound Infection -Meningitis -Blood Stream Catheter Infection -Unknown EENT Complaint Exam - Eye Complaint/Exam Onset/Duration: this week Symptoms Are: Still present Timing: Constant Initial Severity: Mild Current Severity: Mild Location: Discreet, Left Character: Reports: Dull, Throbbing Aggravating: Reports: Light Alleviating: Reports: None Associated Signs and Symptoms: Reports: Photophobia, Purulent drainage Related History: Reports: Foreign body, Trauma Eye Surgical History: Reports: None Penetrating Injury Risk Factors: None Globe Rupture Risk Factors: None Acute Glaucoma Risk Factors: None Optic Artery Occlusion Risk Factors: None Visual Acuity Right Eye: 20/20 Visual Acuity Left Eye: 20/20 Visual Field: Normal Extraocular Movement: Normal Orbit Findings: Normal Globe Findings: Intact Lid Findings: Normal Conjunctival Findings: Red Corneal Findings: Clear Fluorescein Uptake: Yes Fundi: Normal Slit Lamp Used: No Differential Diagnoses: Corneal Abrasion Review of Systems - Review Of Systems Constitutional: Reports: No symptoms Eyes: Reports: Blurred vision, Drainage, Inflammation, Pain, Photophobia. Denies: Contact lenses, Glasses Ears, Nose, Mouth, Throat: Reports: No symptoms Respiratory: Reports: No symptoms Cardiac: Reports: No symptoms GI: Reports: No symptoms : Reports: No symptoms Musculoskeletal: Reports: No symptoms Skin: Reports: No symptoms Neurological: Reports: No symptoms Endocrine: Reports: No symptoms Hematologic/Lymphatic: Reports: No symptoms All Other Systems: Reviewed and Negative Past Medical History - Past Medical History Previously Healthy: Yes Endocrine: Reports: Unknown Cardiovascular: Reports: Unknown Respiratory: Reports: Unknown Hematological: Reports: Unknown. Denies: Sickle Cell (trait positive) Gastrointestinal: Reports: Unknown Genitourinary: Reports: Unknown Neuro/Psych: Reports: Unknown Musculoskeletal: Reports: Unknown Cancer: Reports: Unknown - Surgical History General Surgical History: Reports: Unknown - Family History Family History: Reports: Unknown - Social History Smoking Status: Current every day smoker, Light tobacco smoker Hx Substance Use: No Alcohol Screening: Occasionally - Immunizations Tetanus Shot up to Date: No Physical Exam - Physical Exam Appearance: Well-appearing, No pain distress, Well-nourished Pain Distress: Mild Eyes: CINDY, EOMI, Conjunctiva inflammed ENT: Ears normal, Nose normal, Oropharynx normal Neck: Supple Respiratory: Airway patent Cardiovascular: RRR, Pulses normal, No rub, No murmur GI/: Soft, Nontender, No masses, Bowel sounds normal, No Organomegaly Musculoskeletal: Normal strength Skin: Warm, Dry, Normal color Neurological: Sensation intact, Motor intact, Reflexes intact, Cranial nerves intact, Alert, Oriented Psychiatric: Affect appropriate, Mood appropriate Critical Care Note - Critical Care Note Total Time (mins): 0 Course - Course Orders, Labs, Meds: Orders Category Date Time Status Balanced Salt Solution [Eye-Stream] MEDS 12/06/18 12:37 Discontinued 1 bottle OP ONCE STA Fluorescein Sodium [Ful-Carla] MEDS 12/06/18 12:37 Discontinued 1 strip OP ONCE STA Sulfacetm Na/Prednisol AC [Blephamide Eye Ointment] MEDS 12/06/18 12:50 Stat 1 applic OP ONCE STA Tetracaine HCl [Tetracaine 0.5% Opth Siri] MEDS 12/06/18 12:37 Discontinued 2 drop OP ONCE STA Tetracaine HCl/Pf [Tetracaine 0.5% Unit-Dose] MEDS 12/06/18 12:44 Discontinued 1 drop OP .STK-MED ONE Tetracaine HCl/Pf [Tetracaine 0.5% Unit-Dose] MEDS 12/06/18 12:47 Discontinued 2 drop OP ONCE STA Medications Generic Name Dose Route Start Last Admin Trade Name Freq PRN Reason Stop Dose Admin Sulfacetamide/Prednisolone Acetate 1 applic 12/06/18 12:50 Blephamide Eye Ointment OP 12/06/18 12:51 ONCE STA Discontinued Medications Generic Name Dose Route Start Last Admin Trade Name Freq PRN Reason Stop Dose Admin Eye Irrigation Solution 1 bottle 12/06/18 12:37 12/06/18 12:48 Eye-Stream OP 12/06/18 12:38 1 bottle ONCE STA Administration Fluorescein Sodium 1 strip 12/06/18 12:37 12/06/18 12:49 Ful-Carla OP 12/06/18 12:38 1 strip ONCE STA Administration Tetracaine HCl 2 drop 12/06/18 12:37 Tetracaine 0.5% Opth Siri OP 12/06/18 12:38 ONCE STA Tetracaine HCl 2 drop 12/06/18 12:47 12/06/18 12:49 Tetracaine 0.5% Unit-Dose OP 12/06/18 12:48 2 drop ONCE STA Administration Vital Signs: Temp Pulse Resp BP Pulse Ox 12/06/18 12:25 98.3 F 84 20 136/76 97 Departure - Departure Time of Disposition: 12:53 Disposition: HOME SELF-CARE Discharge Problem: Corneal abrasion Qualifiers: Encounter type: initial encounter Laterality: left Qualified Code(s): S05.02XA - Injury of conjunctiva and corneal abrasion without foreign body, left eye, initial encounter Instructions: Corneal Abrasion (ED) Condition: Good Pt referred to PMD for follow-up: Yes IPMP verified?: No Additional Instructions: keep eye patchesd---norco 7.5mg q 4hrs prn pain #6---reapply ointment in am and reapply patch----see eye doctor tomorrow ---Mayur or someone from the er should call you for appt ---if you dont hear from anyone by 10am---call the er for instructions Allergies/Adverse Reactions: Allergies No Known Allergies Allergy (Verified 12/06/18 12:40) PATIENT'S MOTHER STATES THAT HE HAD A REACTION TO A PSYCHIATRIC MEDICATION THREE YEARS AGO, BUT SHE IS NOT ABLE TO RECALL WHAT MEDICATION. SHE STATES THAT PATIENT WAS FOAMING AT THE MOUTH AND "GAGGING" Home Medications: Ambulatory Orders 1 [No Reported Medications] 10/16/18 Disposition Discussed With: Patient
[2018-12-06] MEDS: BLEPHAMIDE EYE OINTMENT OP STA (12:54)
== END 2018-12-06 13:04 | disposition home or self-care (01) ==
LOC: ED 12:25
DX: S05.02XA Injury of conjunctiva and corneal abrasion without foreign body, left eye, initial encounter (principal); F17.210 Nicotine dependence, cigarettes, uncomplicated
CPT/HCPCS: 99283